=== PATIENT | male | born 1975 | race Caucasian/White ===

== ENCOUNTER 2021-06-27 16:28 | Observation (INO) | payer OTHER ==
--- NOTE | 2021-06-27 16:52 | ERPHSYRPT ---
- History of Present Illness Source: patient Exam Limitations: other (Very poor historian) Patient Subjective Stated Complaint: PT HERE FOR CHEST PAIN TO LEFT SIDE OF CHEST FOR 2 DAYS, AND DIZZINESS SINCE MONDAY, HE STATES IT FEELS LIKE ROOM IS SPINNING, CO HEADACHE Triage Nursing Assessment: PT ALERT, FACE MASK IN PLACE, WALKED IN UNSTEADY AT TIMES ,RESP EASY, SKIN W/D/P Physician History: 45 yo wm presents w lethargy x3 days. Pt states that he had a near-syncopal episode on 06/24/21 at work and has not felt the same since. He has a mild RHODES and also some mild intermittant chest pain. He denies focal weakness/N/V/D/melena/hematochezia/fever/cough/dysuria/hematuria. Pt has a h/o meth abuse but states that he has not used in 1-2 weeks. Timing/Duration: other (3 days) Character of Deficits: new weakness, general (difuse) Deficits: weak Baseline/Normal Cognition: alert oriented x 3 Current Cognition: alert oriented x 3 Associated Symptoms: confusion, fatigue, weakness, No fever, No chills, No loss of consciousness, No nausea, No vomiting Allergies/Adverse Reactions: hydromorphone [From Dilaudid] Adverse Reaction (Verified 06/27/21 16:35) Home Medications: No Reportable Medications [No Reported Medications] 06/27/21 [History] Hx Tetanus, Diphtheria Vaccination/Date Given: No Hx Influenza Vaccination/Date Given: No Hx Pneumococcal Vaccination/Date Given: No Immunizations Up to Date: Yes Travel Risk - International Travel Have you traveled outside of the country in past 3 weeks: No - Coronavirus Screening Are you exhibiting any of the following symptoms?: No - Vaccine Status Have you recieved a Covid-19 vaccination: No - Review of Systems Constitutional: No Symptoms, Lethargy, Malaise, Weakness Eyes: No Symptoms Ears, Nose, & Throat: No Symptoms Respiratory: No Symptoms Cardiac: No Symptoms, Chest Pain Abdominal/Gastrointestinal: No Symptoms Genitourinary Symptoms: No Symptoms Musculoskeletal: No Symptoms Skin: No Symptoms Neurological: No Symptoms, Dizziness, Headache, No Focal Weakness Psychological: No Symptoms, Drug Abuse Endocrine: No Symptoms Hematologic/Lymphatic: No Symptoms Immunological/Allergic: No Symptoms - Past Medical History Pertinent Past Medical History: No - Past Surgical History Past Surgical History: Yes Gastrointestinal: Hernia Repair - Social History Smoking Status: Current every day smoker Exposure to second hand smoke: Yes Drug Use: methamphetamines Patient Lives Alone: Yes - Nursing Vital Signs Nursing Vital Signs: Initial Vital Signs Temperature 97.0 F 06/27/21 16:29 Pulse Rate 100 H 06/27/21 16:29 Respiratory Rate 18 06/27/21 16:29 Blood Pressure 173/106 06/27/21 16:29 O2 Sat by Pulse Oximetry 99 06/27/21 16:29 Pain Scale Pain Intensity 0 Tachy/Hypertensive - Dinora Coma Scale Best Eye Response (Sumner): (4) open spontaneously Best Verbal Response (D[place]ora): (5) oriented Best Motor Response (D[place]ora): (6) obeys commands [place]ner Total: 15 - Physical Exam General Appearance: no apparent distress, lethargy Eye Exam: bilateral eye: normal inspection, PERRL, EOMI Ears, Nose, Throat Exam: normal ENT inspection, TMs normal, pharynx normal, moist mucous membranes Neck Exam: normal inspection, non-tender, supple, full range of motion, No meningismus, No mass, No Brudzinski, No Kernig's, No carotid bruit Respiratory: normal breath sounds, lungs clear, airway intact Cardiovascular: regular rate/rhythm, normal heart sounds, normal peripheral pulses, capillary refill <2 sec, No murmur Gastrointestinal: soft, normal bowel sounds, No tenderness Back Exam: normal inspection, normal range of motion, No CVA tenderness, No vertebral tenderness Extremity Exam: normal inspection, normal range of motion Peripheral Pulses: carotid (R): 2+, carotid (L): 2+ Mental Status: oriented x 3, lethargy payloader machine operator Exam: normal hearing, normal speech, PERRL, No abnormal gag reflex Motor/Sensory: no motor deficit, no sensory deficit, no pronator drift, negative Babinski's sign DTR: bicep (R): 2+, bicep (L): 2+ Skin Exam: normal color, warm, dry SpO2 Interpretation: normal SpO2: 99 O2 Delivery: Room Air - Course Nursing assessment & vital signs reviewed: Yes EKG Interpreted by Me: RATE (NSR/R84/Normal QT-QTc/No acute ST segment changes) - Radiology Exams Chest X-ray Interpretation: Interpreted by me (CXR neg per ER read) - CT Exams Head CT Interpretation: Tele-radiologist Report (CT head neg per [facility]) Other CT Interpretation: Tele-radiologist Report (CTA head/neck wnl) Ordered Tests: Active Orders 24 hr Category Date Time Status Bedrest ROUTINE Activity 06/27/21 19:16 Ordered Code Status Order ROUTINE Care 06/27/21 19:16 Ordered EKG-ER Only STAT Care 06/27/21 16:43 Active IV Care Q6H Care 06/27/21 19:16 Ordered NPO (ED) STAT Care 06/27/21 16:43 Active NPO (ED) STAT Care 06/27/21 18:00 Active Neuro Checks Q4H Care 06/27/21 19:15 Ordered Vital Signs Q4H Care 06/27/21 19:15 Ordered Heart-Healthy Diet Diet 06/27/21 Breakfast Ordered CHEST 1 VIEW (PORTABLE) Stat Exams 06/27/21 18:[address] ANGIOGRAPHY NECK [CT] Stat Exams 06/27/21 18:28 Taken CTA HEAD W AND/OR WO CONTRAST [CT] Routine Exams 06/27/21 18:10 Taken HEAD WITHOUT CONTRAST [CT] Stat Exams 06/27/21 16:58 Completed MRI BRAIN W/O CONTRAST [MRI] Stat Exams 06/27/21 19:18 Ordered ACETAMINOPHEN Stat Lab 06/27/21 17:00 Completed BLOOD CULTURE Stat Lab 06/27/21 Ordered CBC W DIFF AM.LAB Lab 06/28/21 04:00 Ordered CBC W DIFF Stat Lab 06/27/21 17:00 Completed CMP AM.LAB Lab 06/28/21 04:00 Ordered CMP Stat Lab 06/27/21 17:00 Completed ETHYL ALCOHOL Stat Lab 06/27/21 17:00 Completed Lactic Acid Stat Lab 06/27/21 16:58 Completed PROTIME WITH INR Stat Lab 06/27/21 17:00 Completed PTT Stat Lab 06/27/21 17:00 Completed SALICYLATE Stat Lab 06/27/21 17:00 Completed TROPONIN Q3H Lab 06/27/21 17:00 Completed TROPONIN Q3H Lab 06/27/21 20:00 Ordered TROPONIN Q3H Lab 06/27/21 23:00 Ordered TROPONIN Q3H Lab 06/28/21 02:00 Ordered TROPONIN Q3H Lab 06/28/21 05:00 Ordered Urine Triage Profile Stat Lab 06/27/21 17:10 Completed Transfer Order Routine Transfer 06/27/21 Ordered Medication Summary Generic Name Dose Route Start Last Admin Trade Name Freq PRN Reason Stop Dose Admin Sodium Chloride 1,000 mls @ 100 mls/hr 06/27/21 19:15 Sodium Chloride 0.9% 1000 Ml IV 07/27/21 19:14 .Q10H LENORE Ondansetron HCl 4 mg 06/27/21 19:15 Ondansetron Hcl 4 Mg/2 Ml Vial IV 07/27/21 19:14 Q6H PRN PRN NAUSEA/VOMITING Lab/Rad Data: Laboratory Result Diagrams 06/27/21 17:00 06/27/21 17:00 Laboratory Results 06/27/21 06/27/21 06/27/21 Range/Units 17:34 17:10 17:10 WBC (4.0-10.5) K/mm3 RBC (4.1-5.6) M/mm3 Hgb (12.5-18.0) gm/dl Hct (42-50) % MCV (78-100) fl MCH (26-32) pg MCHC (32-36) g/dl RDW (11.5-14.0) % Plt Count (150-450) K/mm3 MPV (7.5-11.0) fl Gran % (36.0-66.0) % Eos # (Auto) (0-0.5) Absolute Lymphs (auto) (1.0-4.6) Absolute Monos (auto) (0.0-1.3) Lymphocytes % (24.0-44.0) % Monocytes % (0.0-12.0) % Eosinophils % (0.00-5.0) % Basophils % (0.0-0.4) % Absolute Granulocytes (1.4-6.9) Basophils # (0-0.4) PT (9.4-12.5) SECONDS INR (0.8-3.0) APTT (25.1-36.5) SECONDS Sodium (137-145) mmol/L Potassium (3.5-5.1) mmol/L Chloride (98-107) mmol/L Carbon Dioxide (22-30) mmol/L Anion Gap (5-15) MEQ/L BUN (9-20) mg/dL Creatinine (0.66-1.25) mg/dL Estimated GFR ML/MIN Glucose (74-106) mg/dL Lactic Acid (0.4-2.0) Calcium (8.4-10.2) mg/dL Total Bilirubin (0.2-1.3) mg/dL AST (17-59) U/L ALT (0-50) U/L Alkaline Phosphatase (38-126) U/L Troponin I (0.000-0.034) ng/mL Serum Total Protein (6.3-8.2) g/dL Albumin (3.5-5.0) g/dL Urinalys Dipstick Clnc MAIN LAB Urine Color YELLOW (YELLOW) Urine Appearance CLEAR (CLEAR) Urine pH 7.5 (5-6) Ur Specific [place] 1.025 (1.005-1.025) POC Urine Protein Conf NEGATIVE (Negative) Urine Ketones NEGATIVE (NEGATIVE) Urine Nitrite NEGATIVE (NEGATIVE) Urine Bilirubin NEGATIVE (NEGATIVE) Urine Urobilinogen 0.2 (0-1) mg/dL Urine Leukocytes NEGATIVE (NEGATIVE) Urine WBC (Auto) 3-5 (0-5) /HPF Urine RBC (Auto) 0-2 (0-2) /HPF U Epithel Cells (Auto) NONE (FEW) /HPF Urine Bacteria (Auto) NONE (NEGATIVE) /HPF Urine RBC NEGATIVE (0-5) Adam/ul Amorphous Crystals FEW (NEGATIVE) /HPF Urine Sperm (Auto) PRESENT (NEGATIVE) /HPF Ur Culture Indicated? NO Urine Glucose NEGATIVE (NEGATIVE) mg/dL Salicylates (2-20) mg/dL Urine Opiates Level NEGATIVE (NEGATIVE) Ur Methadone NEGATIVE (NEGATIVE) Acetaminophen (10-30) ug/ml Urine Barbiturates NEGATIVE (NEGATIVE) Ur Phencyclidine (PCP) NEGATIVE (NEGATIVE) Urine Amphetamine POSITIVE (NEGATIVE) U Benzodiazepine Level NEGATIVE (NEGATIVE) Urine Cocaine NEGATIVE (NEGATIVE) Urine Marijuana (THC) NEGATIVE (NEGATIVE) Ethyl Alcohol (0-10) mg/dL Influenza Type A Ag NEGATIVE (NEGATIVE) Influenza Type B Ag NEGATIVE (NEGATIVE) RSV (PCR) NEGATIVE (Negative) SARS-CoV-2 (PCR) NEGATIVE (NEGATIVE) 06/27/21 06/27/21 06/27/21 Range/Units 17:00 17:00 17:00 WBC (4.0-10.5) K/mm3 RBC (4.1-5.6) M/mm3 Hgb (12.5-18.0) gm/dl Hct (42-50) % MCV (78-100) fl MCH (26-32) pg MCHC (32-36) g/dl RDW (11.5-14.0) % Plt Count (150-450) K/mm3 MPV (7.5-11.0) fl Gran % (36.0-66.0) % Eos # (Auto) (0-0.5) Absolute Lymphs (auto) (1.0-4.6) Absolute Monos (auto) (0.0-1.3) Lymphocytes % (24.0-44.0) % Monocytes % (0.0-12.0) % Eosinophils % (0.00-5.0) % Basophils % (0.0-0.4) % Absolute Granulocytes (1.4-6.9) Basophils # (0-0.4) PT 10.9 (9.4-12.5) SECONDS INR 0.92 (0.8-3.0) APTT 29.4 (25.1-36.5) SECONDS Sodium (137-145) mmol/L Potassium (3.5-5.1) mmol/L Chloride (98-107) mmol/L Carbon Dioxide (22-30) mmol/L Anion Gap (5-15) MEQ/L BUN (9-20) mg/dL Creatinine (0.66-1.25) mg/dL Estimated GFR ML/MIN Glucose (74-106) mg/dL Lactic Acid (0.4-2.0) Calcium (8.4-10.2) mg/dL Total Bilirubin (0.2-1.3) mg/dL AST (17-59) U/L ALT (0-50) U/L Alkaline Phosphatase (38-126) U/L Troponin I < 0.012 (0.000-0.034) ng/mL Serum Total Protein (6.3-8.2) g/dL Albumin (3.5-5.0) g/dL Urinalys Dipstick Clnc Urine Color (YELLOW) Urine Appearance (CLEAR) Urine pH (5-6) Ur Specific [place] (1.005-1.025) POC Urine Protein Conf (Negative) Urine Ketones (NEGATIVE) Urine Nitrite (NEGATIVE) Urine Bilirubin (NEGATIVE) Urine Urobilinogen (0-1) mg/dL Urine Leukocytes (NEGATIVE) Urine WBC (Auto) (0-5) /HPF Urine RBC (Auto) (0-2) /HPF U Epithel Cells (Auto) (FEW) /HPF Urine Bacteria (Auto) (NEGATIVE) /HPF Urine RBC (0-5) Adam/ul Amorphous Crystals (NEGATIVE) /HPF Urine Sperm (Auto) (NEGATIVE) /HPF Ur Culture Indicated? Urine Glucose (NEGATIVE) mg/dL Salicylates 1.9 L (2-20) mg/dL Urine Opiates Level (NEGATIVE) Ur Methadone (NEGATIVE) Acetaminophen < 10 L (10-30) ug/ml Urine Barbiturates (NEGATIVE) Ur Phencyclidine (PCP) (NEGATIVE) Urine Amphetamine (NEGATIVE) U Benzodiazepine Level (NEGATIVE) Urine Cocaine (NEGATIVE) Urine Marijuana (THC) (NEGATIVE) Ethyl Alcohol < 10 (0-10) mg/dL Influenza Type A Ag (NEGATIVE) Influenza Type B Ag (NEGATIVE) RSV (PCR) (Negative) SARS-CoV-2 (PCR) (NEGATIVE) 06/27/21 06/27/21 06/27/21 Range/Units 17:00 17:00 16:58 WBC 7.2 (4.0-10.5) K/mm3 RBC 5.26 (4.1-5.6) M/mm3 Hgb 16.1 (12.5-18.0) gm/dl Hct 47.7 (42-50) % MCV 90.7 (78-100) fl MCH 30.6 (26-32) pg MCHC 33.8 (32-36) g/dl RDW 13.1 (11.5-14.0) % Plt Count 202 (150-450) K/mm3 MPV 11.0 (7.5-11.0) fl Gran % 62.8 (36.0-66.0) % Eos # (Auto) 0.11 (0-0.5) Absolute Lymphs (auto) 1.98 (1.0-4.6) Absolute Monos (auto) 0.56 (0.0-1.3) Lymphocytes % 27.5 (24.0-44.0) % Monocytes % 7.8 (0.0-12.0) % Eosinophils % 1.5 (0.00-5.0) % Basophils % 0.4 (0.0-0.4) % Absolute Granulocytes 4.52 (1.4-6.9) Basophils # 0.03 (0-0.4) PT (9.4-12.5) SECONDS INR (0.8-3.0) APTT (25.1-36.5) SECONDS Sodium 136 L (137-145) mmol/L Potassium 3.7 (3.5-5.1) mmol/L Chloride 105 (98-107) mmol/L Carbon Dioxide 25 (22-30) mmol/L Anion Gap 10.0 (5-15) MEQ/L BUN 11 (9-20) mg/dL Creatinine 0.81 (0.66-1.25) mg/dL Estimated GFR > 60.0 ML/MIN Glucose 120 H (74-106) mg/dL Lactic Acid 1.7 (0.4-2.0) Calcium 9.0 (8.4-10.2) mg/dL Total Bilirubin 0.80 (0.2-1.3) mg/dL AST 38 (17-59) U/L ALT 36 (0-50) U/L Alkaline Phosphatase 73 (38-126) U/L Troponin I (0.000-0.034) ng/mL Serum Total Protein 6.7 (6.3-8.2) g/dL Albumin 4.0 (3.5-5.0) g/dL Urinalys Dipstick Clnc Urine Color (YELLOW) Urine Appearance (CLEAR) Urine pH (5-6) Ur Specific [place] (1.005-1.025) POC Urine Protein Conf (Negative) Urine Ketones (NEGATIVE) Urine Nitrite (NEGATIVE) Urine Bilirubin (NEGATIVE) Urine Urobilinogen (0-1) mg/dL Urine Leukocytes (NEGATIVE) Urine WBC (Auto) (0-5) /HPF Urine RBC (Auto) (0-2) /HPF U Epithel Cells (Auto) (FEW) /HPF Urine Bacteria (Auto) (NEGATIVE) /HPF Urine RBC (0-5) Adam/ul Amorphous Crystals (NEGATIVE) /HPF Urine Sperm (Auto) (NEGATIVE) /HPF Ur Culture Indicated? Urine Glucose (NEGATIVE) mg/dL Salicylates (2-20) mg/dL Urine Opiates Level (NEGATIVE) Ur Methadone (NEGATIVE) Acetaminophen (10-30) ug/ml Urine Barbiturates (NEGATIVE) Ur Phencyclidine (PCP) (NEGATIVE) Urine Amphetamine (NEGATIVE) U Benzodiazepine Level (NEGATIVE) Urine Cocaine (NEGATIVE) Urine Marijuana (THC) (NEGATIVE) Ethyl Alcohol (0-10) mg/dL Influenza Type A Ag (NEGATIVE) Influenza Type B Ag (NEGATIVE) RSV (PCR) (Negative) SARS-CoV-2 (PCR) (NEGATIVE) - Progress Progress Note: 06/27/21 19:[address] Aguilar 06/27/21 19:19 06/27/21 19:20 Pt states that he is too weak to go home and wants to have a definitive answer of why he is so weak, so pt admitted w MRI in AM Discussed with : Ernestina Counseled pt/family regarding: drug and/or alcohol abuse, lab results, diagnosis, need for follow-up, rad results - Departure Departure Disposition: Observation Clinical Impression: Methamphetamine abuse, Altered mental status Referrals: ADRIANA ORTIZ [Primary Care Provider] - Follow up/PCP as directed
[2021-06-27 17:05] LABS: Absolute Neutrophil Ct (ANC) 4.52 (1.4-6.9); Basophil (Absolute #) 0.03 (0-0.4); Eosinophil % 1.5 % (0.00-5.0); Eosinophil (Absolute #) 0.11 (0-0.5); Hematocrit 47.7 % (42-50); Hemoglobin 16.1 gm/dl (12.5-18.0); Lymphocyte (Absolute #) 1.98 (1.0-4.6); Lymphocytes % 27.5 % (24.0-44.0); Mean Cell Volume 90.7 fl (78-100); Mean Corpuscular Hemoglobin 30.6 pg (26-32); Mean Corpuscular Hgb Concent. 33.8 g/dl (32-36); Monocyte (Absolute #) 0.56 (0.0-1.3); Monocytes % 7.8 % (0.0-12.0); Neutrophil % 62.8 % (36.0-66.0); Platelet Count 202 K/mm3 (150-450); Red Blood Count 5.26 M/mm3 (4.1-5.6); Red Cell Distribution Width 13.1 % (11.5-14.0); White Blood Count 7.2 K/mm3 (4.0-10.5)
[2021-06-27 17:16] LABS: ALKALINE PHOSPHATASE 73 U/L (38-126); BLOOD UREA NITROGEN 11 mg/dL (9-20); CHLORIDE 105 mmol/L (98-107); Carbon Dioxide 25 mmol/L (22-30); Creatinine 1 0.81 mg/dL (0.66-1.25); EST GLOMERULAR FILTRATION RATE > 60.0 ML/MIN; Glucose 120 mg/dL (74-106); INR 0.92 (0.8-3.0); PROTIME 10.9 SECONDS (9.4-12.5); Potassium 3.7 mmol/L (3.5-5.1); SGOT/AST 38 U/L (17-59); SGPT/ALT 36 U/L (0-50); SODIUM 136 mmol/L (137-145); Total Protein 6.7 g/dL (6.3-8.2)
[2021-06-27 17:17] LABS: ACETAMINOPHEN < 10 ug/ml (10-30); ETHYL ALCOHOL < 10 mg/dL (0-10); SALICYLATE 1.9 mg/dL (2-20)
[2021-06-27 17:18] LABS: PTT 29.4 SECONDS (25.1-36.5)
[2021-06-27 18:00] LABS: Amourphous Crystal FEW /HPF (NEGATIVE); RBC 0-2 /HPF (0-2); Sperm PRESENT /HPF (NEGATIVE)
[2021-06-27 18:02] LABS: Appearance CLEAR (CLEAR); Bilirubin NEGATIVE (NEGATIVE); Glucose NEGATIVE (NEGATIVE); Ketones NEGATIVE (NEGATIVE); Nitrite NEGATIVE (NEGATIVE); Ph 7.5 (5-6); Protein,Urine Dip NEGATIVE (Negative); RBC NEGATIVE Ery/ul (0-5); Specific Gravity 1.025 (1.005-1.025); Urobilinogen 0.2 mg/dL (0-1)
[2021-06-27 18:04] LABS: Barbiturate,Urine NEGATIVE (NEGATIVE); Cocaine,Urine NEGATIVE (NEGATIVE); Methadone,Urine NEGATIVE (NEGATIVE); Opiate,Urine NEGATIVE (NEGATIVE); PCP,Urine NEGATIVE (NEGATIVE); THC,Urine NEGATIVE (NEGATIVE)
[2021-06-27 18:11] LABS: Dipstick done @ ? MAIN LAB
[2021-06-27 18:15] LABS: INFLUENZA A NEGATIVE (NEGATIVE); INFLUENZA B NEGATIVE (NEGATIVE); RESPIRATORY SYNCTIAL VIRUS NEGATIVE (Negative); SARS-CoV-2 Xpert Express NEGATIVE (NEGATIVE)
[2021-06-27 18:45] LABS: Amphetamine,Urine POSITIVE (NEGATIVE); Benzodiazepine,Urine NEGATIVE (NEGATIVE)
--- NOTE | 2021-06-27 18:53 | XRAY ---
Indication: Acute mental status change. Confusion. Headache. Multiple contiguous axial images obtained through the head without contrast. Comparison: None Normal appearing brain parenchyma, ventricles, and bony calvarium. Visualized paranasal sinuses and mastoid air cells are clear. Impression: Normal CT head without contrast exam. Comment: Preliminary interpretation made by [facility]. No critical discrepancy.
[2021-06-27] MEDS ORDERED: Zofran 4 MG/2 ML VIAL IV PRN (19:15)
[2021-06-27] MEDS: Sodium Chloride 0.9% 1000 ML 1,000 ML IV SCH (19:23)
[2021-06-27] MEDS ORDERED: TYLENOL 325 MG PO PRN (20:20)
[2021-06-28 05:00] LABS: Absolute Neutrophil Ct (ANC) 4.32 (1.4-6.9); Basophil (Absolute #) 0.04 (0-0.4); Eosinophil % 2.6 % (0.00-5.0); Hematocrit 46.3 % (42-50); Hemoglobin 15.2 gm/dl (12.5-18.0); Lymphocyte (Absolute #) 2.35 (1.0-4.6); Lymphocytes % 31.1 % (24.0-44.0); Mean Corpuscular Hemoglobin 30.5 pg (26-32); Mean Corpuscular Hgb Concent. 32.8 g/dl (32-36); Monocyte (Absolute #) 0.64 (0.0-1.3); Monocytes % 8.5 % (0.0-12.0); Neutrophil % 57.3 % (36.0-66.0); Platelet Count 190 K/mm3 (150-450); Red Blood Count 4.98 M/mm3 (4.1-5.6); Red Cell Distribution Width 13.4 % (11.5-14.0); White Blood Count 7.6 K/mm3 (4.0-10.5)
[2021-06-28 05:20] LABS: ALBUMIN 3.3 g/dL (3.5-5.0); ALKALINE PHOSPHATASE 63 U/L (38-126); ANION GAP 8.4 MEQ/L (5-15); BLOOD UREA NITROGEN 12 mg/dL (9-20); CHLORIDE 109 mmol/L (98-107); Calcium 8.4 mg/dL (8.4-10.2); Carbon Dioxide 24 mmol/L (22-30); Creatinine 1 0.85 mg/dL (0.66-1.25); EST GLOMERULAR FILTRATION RATE > 60.0 ML/MIN; Glucose 96 mg/dL (74-106); Potassium 3.7 mmol/L (3.5-5.1); SGOT/AST 39 U/L (17-59); SGPT/ALT 32 U/L (0-50); SODIUM 137 mmol/L (137-145); Total Protein 5.8 g/dL (6.3-8.2)
[2021-06-28] MEDS: Sodium Chloride 0.9% 1000 ML 1,000 ML IV SCH (05:36)
--- NOTE | 2021-06-28 08:48 | XRAY ---
Indication: Chest pain. Comparison: None Portable chest clear. Heart and mediastinal structures within normal limits. Bony thorax intact with minimal degenerative changes and tiny radiopacities/foreign bodies overlying left upper extremity.
--- NOTE | 2021-06-28 08:56 | XRAY ---
Indication: Mental status change. Confusion. Headache. Conventional contrast enhanced CTA neck performed using 100 cc Isovue 370 contrast. Two-dimensional sagittal and coronal reformatted images obtained. Additional 3-dimensional reformatted images obtained using a separate workstation. Comparison: None. Visualized aortic arch is normal in course and caliber with normal branch patent right brachiocephalic, left common carotid, and left subclavian arteries. Examination of the left and right carotid circulation demonstrates normal CTA appearance to the common carotid, carotid bulb, internal carotid, and external carotid arteries. Vertebral arteries are also normal in CTA appearance with the right dominant in size. Visualized soft tissues including on the apices are unremarkable. Visualized osseous structures intact with mild/moderate C4-C7 degenerative disc disease. CTA head reported separately. Impression: Normal CTA neck with contrast exam. Incidental C4-C7 degenerative disc disease. Comment: Preliminary interpretation made by [facility]. No critical discrepancy.
--- NOTE | 2021-06-28 08:58 | XRAY ---
Indication: Mental status change. Confusion. Headache. Conventional contrast enhanced CTA head performed using 100 cc Isovue 370 contrast. Two-dimensional sagittal and coronal reformatted images obtained. Additional 3-dimensional reformatted images obtained using a separate workstation. Comparison: None. CTA neck reported separately. Left and right internal carotid arteries are normal in course and caliber without critical stenosis, obstruction, or AV malformation. Normal carotid terminus with normal branching A1 and M1 segments bilaterally. More distal anterior cerebral, middle cerebral, anterior communicating, and posterior communicating arteries are normal in CTA appearance. Posterior circulation demonstrates normal CTA appearance to the basilar, left/right posterior cerebral, and left/right superior cerebellar arteries. Venous drainage/sinuses are unremarkable. No abnormal enhancing intra-or extra-axial mass. Impression: Normal CTA head with contrast exam. Comment: Preliminary interpretation made by [facility]. No critical discrepancy.
[2021-06-28] MEDS ORDERED: ANTIVERT 25 MG PO PRN (09:08)
[2021-06-28] MEDS ORDERED: NICODERM CQ 14 MG TOP SCH (10:00)
[2021-06-28] MEDS ORDERED: Transderm Scop 1.5MG Patch TOP SCH (10:00)
[2021-06-28] MEDS ORDERED: ZOLOFT 50 MG TABLET PO SCH (10:00)
--- NOTE | 2021-06-28 12:42 | XRAY ---
Indication: Acute mental status change. Left sided weakness. Sagittal, coronal, and axial MRI brain performed without contrast using T1, T2, FLAIR, diffusion, and ADC sequences. Comparison: None Ventriculosulcal pattern appears symmetric. No acute intracranial hemorrhage, abnormal extra-axial fluid collection, or mass effect. Diffusion images are negative for restricted signal. Fourth ventricle is midline without hydrocephalus. 7/8 cranial nerve complex bilaterally symmetric. Normal flow void signal within the major intracerebral circulation. Normal appearing craniocervical junction and sella turcica. Visualized paranasal sinuses are clear. Impression: Negative MRI brain without contrast exam.
[2021-06-28 14:24] VITALS: BP 153/82; PULSE 64; O2SAT 100
--- NOTE | 2021-07-01 09:03 | PCM.SSS ---
History of Present Illness - Chief Complaint Chief Complaint: meth abuse/AMS Date: 06/28/21 History of Present Illness: is a 45 year old male. Pt. presented to ER noted chest pain for the past couple of days constantly, notes thoughts seem to be slowed, he also noted dizziness, worse with standing and a general fatigue and weakness. Pt. admitted for MRI of brain and further evaluation and monitoring. - Review of Systems Constitutional: Fatigue Eyes: No Symptoms Ears, Nose, & Throat: No Symptoms Respiratory: No Cough, No Short Of Breath Cardiac: No Chest Pain, No Edema, No Syncope Abdominal/Gastrointestinal: No Abdominal Pain, No Nausea, No Vomiting, No Diarrhea Genitourinary Symptoms: No Dysuria Musculoskeletal: No Back Pain, No Neck Pain Skin: No Rash Neurological: Dizziness, Headache, Other (Pt. notes he is foggy headed worse since syncopial episode he had at work about 4 days prior) Psychological: Anxiety, Depression Endocrine: No Symptoms Hematologic/Lymphatic: No Symptoms Immunological/Allergic: No Symptoms Medications & Allergies Home Medications: Home Medication List Meclizine HCl 12.5 mg PO TIDPRN PRN 30 Days #90 tablet 06/28/21 [Rx] Sertraline HCl 50 mg [Zoloft 50 mg Tablet] 50 mg PO DAILY 30 Days #30 tab 06/28/21 [Rx] Allergies/Adverse Reactions: Allergies Allergy/AdvReac Type Severity Reaction Status Date / Time hydromorphone [From Dilaudid] AdvReac Severe Verified 06/27/21 20:42 - Past Medical History Past Medical History: No Neurological History: Peripheral Neuropathy ENT History: No Pertinent History Cardiac History: Hypertension Respiratory History: Pneumonia Endocrine Medical History: No Pertinent History Musculoskelatal History: Fractures GI Medical History: Ulcer History: No Pertinent History Pyscho-Social History: Anxiety, Depression, Panic Disorder Male Reproductive Disorders: No Pertinent History - Past Surgical History Past Surgical History: Yes Neuro Surgical History: No Pertinent History Cardiac History: No Pertinent History Respiratory Surgery: No Pertinent History GI Surgical History: Hernia Repair Genitourinary Surgical Hx: No Pertinent History Musculskeletal Surgical Hx: No Pertinent History Male Surgical History: No Pertinent History Other Surgical History: hernia repair as an - Social History Smoking Status: Current every day smoker How long have you smoked: 4 yrs Exposure to second hand smoke: Yes Alcohol: Weekly Drug Use: methamphetamines - Physical Exam General Appearance: no apparent distress, alert Neurologic Exam: alert, oriented x 3, cooperative, normal mood/affect, nml cerebellar function, nml station & gait, sensation nml, No motor deficits Eye Exam: PERRL/EOMI, eyes nml inspection Ears, Nose, Throat Exam: normal ENT inspection, TMs normal, pharynx normal, moist mucous membranes Neck Exam: normal inspection, non-tender, supple, full range of motion Respiratory Exam: normal breath sounds, lungs clear, No respiratory distress Cardiovascular Exam: regular rate/rhythm, normal heart sounds, normal peripheral pulses Gastrointestinal/Abdomen Exam: soft, normal bowel sounds, No tenderness, No mass Back Exam: normal inspection, normal range of motion, No CVA tenderness, No vertebral tenderness Extremity Exam: normal inspection, normal range of motion, pelvis stable Skin Exam: normal color, warm, dry, No rash Lymphatic Exam: No adenopathy Results - Labs Lab/Micro Results: Microbiology 06/27/21 19:36 Blood Culture - Preliminary Blood NO GROWTH TO DATE 06/27/21 19:36 Blood Culture - Preliminary Blood NO GROWTH TO DATE Assessment/Plan (1) Mixed anxiety and depressive disorder Status: Acute (2) Vertigo Status: Acute Code(s): R42 - DIZZINESS AND GIDDINESS (3) Altered mental status Status: Acute Code(s): R41.82 - ALTERED MENTAL STATUS, UNSPECIFIED (4) Methamphetamine abuse Status: Acute Code(s): F15.10 - OTHER STIMULANT ABUSE, UNCOMPLICATED Hospital Summary - Hospital Course Hospital Course: Pt. admitted for observation, MRI of brain showed no abnormalities, other evaluation including serial troponins were negative. Upon discussion with patiented noted he was under a lot of stress and anxiety. Workup failed to conclude any physical cause and pt. agreed that a medication for anxiety and depression was needed and with negative work-up pt. was ready to go home. - Vitals & Intake/Output Vital Signs: Vital Signs Temperature 98.4 F 06/28/21 12:00 Pulse Rate 64 06/28/21 12:00 Respiratory Rate 20 06/28/21 12:00 Blood Pressure 153/82 06/28/21 12:00 O2 Sat by Pulse Oximetry 100 06/28/21 12:00 Intake & Output: Intake & Output 06/28/21 06/29/21 06/30/21 07/01/21 11:59 11:59 11:59 11:59 Intake Total 1612 480 Output Total 450 Balance 1162 480 Weight 63 kg - Lab Result Diagrams: 06/28/21 04:54 06/28/21 04:54 Micro Results-Entire Visit: Microbiology 06/27/21 19:36 Blood Culture - Preliminary Blood NO GROWTH TO DATE 06/27/21 19:36 Blood Culture - Preliminary Blood NO GROWTH TO DATE - Discharge Discharge Date: 06/28/21 Disposition: Home, Self-Care Condition: Good Prescriptions: New Meclizine HCl 12.5 mg PO TIDPRN PRN 30 Days #90 tablet PRN Reason: Dizziness/Vertigo Sertraline HCl 50 mg [Zoloft 50 mg Tablet] 50 mg PO DAILY 30 Days #30 tab Instructions: Vertigo (a Type of Dizziness) (DC) Follow up with: MONIQUE SO MD [ACTIVE STAFF] - 06/30/21 11:00 am Forms: Work/School Release Form
== END 2021-06-28 15:36 | disposition home or self-care (01) ==
LOC: ED 16:28 → MED SURG 19:55
PROVIDERS: ADMIT Family Medicine; ATTEND Family Medicine
DX: F41.8 Other specified anxiety disorders (principal); R42 Dizziness and giddiness; R41.82 Altered mental status, unspecified; F15.10 Other stimulant abuse, uncomplicated; R07.9 Chest pain, unspecified; F32.A Depression, unspecified; Z72.0 Tobacco use; Z20.828 Contact with and (suspected) exposure to other viral communicable diseases
CPT/HCPCS: 0241U; 36000; 36415; 70450; 70496; 70498; 70551; 71045; 80053; 80307; 81015; 83605; 84484; 85025; 85610; 85730; 87040; 93005; 93268; 99285; G0378; G0480; A9270-GY